=== PATIENT | female | born 1975 | race Caucasian/White ===

== ENCOUNTER 2019-09-16 11:31 | Inpatient (IN) ==
[~2019-09-16 11:31] MED LIST: FOLIC ACID 1 MG in SYRINGE 9.8 ML IV SCH
--- OUTSIDE RECORDS SUMMARY | 2019-09-16 11:34 | External Medical Summary | Continuity of Care Document ---
:1975 Author Name Enedina Teixeira Address Unavailable Unavailable , Care Team Providers Name Role Phone Del Teixeira Un[email or web address] Unavailable [email or web address] DEL Teixeira, K Unavailable Unavailable Unavailable Unavailable Unavailable Problems Concussion (850.9) (S06.0X9A) Seizure disorder (345.90) (G40.909) Encounter for screening for lipoid disorders (V77.91) (Z13.2 20) Backache (724.5) (M54.9) Coccydynia (724.79) (M53.3) Screening for malignant neoplasm of breast (V76.10) (Z12.39) Multiple insect bites (919.4) (W57.XXXA) Eustachian tube dysfunction (381.81) (H69.80) Allergic rhinitis (477.9) (J30.9) Back Pain Contusion Of The Right Shoulder With Intact Skin Surface (92 3.00) Visit For: Screening Malignant Neoplasm Oral Cavity (V76.42) Hypertension (401.9) (I10) Epistaxis (784.7) (R04.0) Hand pain (729.5) (M79.643) Depression with anxiety (300.4) (F41.8) Flu vaccine need (V04.81) (Z23) Encounter for screening for diabetes mellitus (V77.1) (Z13.1 ) Abnormal finding on mammography (793.80) (R92.8) Anxiety (300.00) (F41.9) Tenosynovitis, wrist (727.05) (M65.9) Allergies and Adverse Reactions Amoxicillin TABS (Allergy) Aspirin TABS (Allergy) predniSONE TABS (Allergy) TEGretol TABS (Allergy) Medications FLUoxetine HCl - 20 MG Oral Capsule; 3 pills each am w ith breakfast. Puneet Luis Start: 17-Apr-2014 Quantity: 90 Refills: 5 amLODIPine Besylate 5 MG Oral Tablet; Take 1 tablet daily Puneet Quintero Start: 14-Jul-2014 Quantity: 30 Refills: 5 Qnasl 80 MCG/ACT Nasal Aerosol Solution; 2 puffs each nostril daily. Puneet Luis Start: 27-Mar-2014 Quantity: 1 Refills: 0 Triamcinolone Acetonide 0.1 % External C ream; APPLY A THIN LAYER TO AFFECTED AREA(S) THREE TO FOUR TIMES DAILY NEEDED FOR ITCHING ABY Landis Start: 30-Jul-2014 Quantity: 1 15 GM Tube Refills: 0 Diclofenac Sodium 75 MG Oral Tablet Delayed Release; T hiren 1 tablet twice daily Puneet Luis Start: 05-Jun-2014 Quantity: 60 Refills: 5 Procedures History of Nerve Block Transforaminal Epidural Status: Completed History of Back Surgery Status: Complete d History of Exploratory Laparoscopy Statu s: Completed History of Appendectomy Status: Complete d History of Tubal Ligation Status: Comple clemente Immunizations Influenza On: 05-Jun-2014 16:08 Lot #: [id number], [employer] Family History Father Family history of Type 2 Diabetes Mellitus Status: Active Family history of Hypertension (V17.49) Status: Active Mother Family history of Essential Hypertension Status: Active Brother Family history of Type 2 Diabetes Mellitus Status: Active Sister Family history of Denial Of Any Significant Medical History Status: Active natural daughter Family history of Denial Of Any Significant Medical History Status: Active Family history of Denial Of Any Significant Medical History Status: Active Family history of Denial Of Any Significant Medical History Status: Active Family history of Asthma (V17.5) Status: Active Social History - Smoking Status Ex-smoker Plan of Treatment Planned Observations Planned Goals not documented Results No Known Results Results not documented
--- OUTSIDE RECORDS SUMMARY | 2019-09-16 11:35 | External Medical Summary | Continuity of Care Document ---
:1975 Author Name Enedina Teixeira Address Unavailable Unavailable , Care Team Providers Name Role Phone Del Teixeira Unavailable [email or web address] Unavailable [email or web address] DEL Teixeira, K Unavailable Unavailable Unavailable Unavailable Unavailable Problems Visit For: Screening Malignant Neoplasm Oral Cavity (V76.42) Contusion Of The Right Shoulder With Intact Skin Surface (92 3.00) Back Pain Concussion (850.9) (S06.0X9A) Seizure disorder (345.90) (G40.909) Encounter for screening for lipoid disorders (V77.91) (Z13.2 20) Backache (724.5) (M54.9) Coccydynia (724.79) (M53.3) Screening for malignant neoplasm of breast (V76.10) (Z12.39) Allergic rhinitis (477.9) (J30.9) Eustachian tube dysfunction (381.81) (H69.80) Flu vaccine need (V04.81) (Z23) Depression with anxiety (300.4) (F41.8) Hand pain (729.5) (M79.643) Tenosynovitis, wrist (727.05) (M65.9) Epistaxis (784.7) (R04.0) Hypertension (401.9) (I10) Multiple insect bites (919.4) (W57.XXXA) Anxiety (300.00) (F41.9) Abnormal finding on mammography (793.80) (R92.8) Encounter for screening for diabetes mellitus (V77.1) (Z13.1 ) Allergies and Adverse Reactions Amoxicillin TABS (Allergy) Aspirin TABS (Allergy) predniSONE TABS (Allergy) TEGretol TABS (Allergy) Medications Qnasl 80 MCG/ACT Nasal Aerosol Solution; 2 puffs each nostril daily. Puneet Luis Start: 27-Mar-2014 Quantity: 1 Refills: 0 FLUoxetine HCl - 20 MG Oral Capsule; 3 pills each am w ith breakfast. Puneet Luis Start: 17-Apr-2014 Quantity: 90 Refills: 5 Diclofenac Sodium 75 MG Oral Tablet Delayed Release; T hiren 1 tablet twice daily Puneet Luis Start: 05-Jun-2014 Quantity: 60 Refills: 5 amLODIPine Besylate 5 MG Oral Tablet; Take 1 tablet daily Puneet Quintero Start: 14-Jul-2014 Quantity: 30 Refills: 5 Triamcinolone Acetonide 0.1 % External C ream; APPLY A THIN LAYER TO AFFECTED AREA(S) THREE TO FOUR TIMES DAILY NEEDED FOR ITCHING ABY Landis Start: 30-Jul-2014 Quantity: 1 15 GM Tube Refills: 0 Procedures History of Nerve Block Transforaminal Epidural Status: Completed History of Back Surgery Status: Complete d History of Exploratory Laparoscopy Statu s: Completed History of Appendectomy Status: Complete d History of Tubal Ligation Status: Comple clemente Immunizations Influenza On: 05-Jun-2014 16:08 Lot #: [id number], [employer] PA[employer] Family History Father Family history [...]
[2019-09-16] MEDS ORDERED: SODIUM CHLORIDE 0.9% 1000ML 2,000 ML IV ONE (12:23)
[2019-09-16] MEDS ORDERED: METOCLOPRAMIDE HCL INJ 5 MG/ML 2 ML VIAL IV STA (12:23)
[2019-09-16] MEDS ORDERED: DIAZEPAM 5 MG/ML INJ 10ML VIAL IV STA ×2 (12:23→12:34)
[2019-09-16] MEDS ORDERED: FOLIC ACID 1 MG in SYRINGE 9.8 ML IV STA (12:34)
[2019-09-16] MEDS ORDERED: DIAZEPAM 5 MG/ML INJ 10ML VIAL IV PRN (12:34)
[2019-09-16] MEDS ORDERED: THIAMINE HCL 200 MG in SODIUM CHLORIDE 0.9% 50 ML IV STA (12:34)
[2019-09-16 12:53] LABS: Basophils # (auto) 0.01 K/uL (0-0.2); Basophils % (auto) 0.2 %; Eosinophils # (auto) 0.01 K/uL (0-0.5); Eosinophils % (auto) 0.2 %; Hematocrit (blood only) 45.8 % (37-47); Hemoglobin 15.8 g/dL (12.0-16.0); Immature Granulocytes # (auto) 0.01 K/uL (0.00-0.02); Immature Granulocytes % (auto) 0.2 %; Lymphocytes # (auto) 0.66 K/uL (1.2-3.4); Lymphocytes % (auto) 15.4 %; Mean Corpuscular Hemoglobin 33.8 pg (25-34); Mean Corpuscular Hgb Conc 34.5 g/dL (32-36); Mean Corpuscular Volume 98.1 fL (80-100); Mean Platelet Volume 9.3 fL (7.4-10.4); Monocytes # (auto) 0.77 K/uL (0.11-0.59); Neutrophils # (auto) 2.82 K/uL (1.4-6.5); Platelet Count 158 K/uL (130-400); RDW Coefficient of Variation 15.2 % (11.5-14.5); RDW Standard Deviation 54.1 fL (36.4-46.3); Red Blood Count 4.67 M/uL (4.2-5.4); White Blood Count 4.28 K/uL (4.8-10.8)
[2019-09-16 13:04] LABS: Appearance Urine Clear (Clear); Bacteria Urine Automated Negative (Negative); Bilirubin Urine Negative (Negative); Blood Urine Negative (Negative); Color Urine Yellow; Glucose Urine UA Negative (Negative); Leukocyte Esterase Urine Negative (Negative); Nitrite Urine Negative (Negative); Protein Urine Trace (Negative); RBC Urine Automated 0-4 /hpf (0-4); Specific Gravity Urine 1.023 (1.000-1.030); Urobilinogen Urine Negative (Negative)
--- NOTE | 2019-09-16 13:05 | XRay Report ---
XR chest 1V portable CLINICAL HISTORY: weakness COMPARISON STUDY: No previous studies for comparison. FINDINGS: Lung volumes are normal. Lungs are clear. There is no pneumothorax or pleural effusion. Car diac size is normal. Mediastinal contours are normal. There is no evidence for pulmonary edema. There are median sternotomy wires. IMPRESSION: No acute cardiopulmonary findings. ACT 112: Negative or not required by law. Electronically signed by: Guerrero Chao M.D. 09/16/2019 1:04 PM
[2019-09-16 13:10] LABS: Ketones Urine 4+ (Negative)
[2019-09-16 13:14] LABS: Albumin Level 4.1 gm/dl (3.4-5.0); Calcium 9.1 mg/dl (8.5-10.1); Creatinine Clr Calc Pharmacy 64.5 ml/min; Est GFR (African American) 72.9; Est GFR (Non-African American) 62.9; Magnesium 1.9 mg/dl (1.8-2.4); Potassium 4.7 mmol/L (3.5-5.1)
[2019-09-16 13:19] LABS: Acetaminophen < 2 ug/ml (10-30)
[2019-09-16 13:25] LABS: Bilirubin,Total 1.6 mg/dl (0.2-1); Globulin 4.1 gm/dl (2.5-4.0); Phosphorus 4.1 mg/dl (2.5-4.9); Thyroid Stimulating Hormone 2.88 uIu/ml (0.300-4.500); Total Protein 8.2 gm/dl (6.4-8.2); Troponin I 0.073 ng/ml (0-0.045)
[2019-09-16] MEDS ORDERED: LORazepam 2 MG/4 ML VIAL IV STA (13:57)
[2019-09-16] MEDS ORDERED: chlordiazePOXIDE HCl 25 MG CAP PO ONE (13:57)
[2019-09-16] MEDS ORDERED: D5W AND 1/2NSS 1,000 ML IV SCH (14:00)
[2019-09-16] MEDS ORDERED: ONDANSETRON INJ 2 MG/ML 2 ML VIAL IV PRN (14:08)
[2019-09-16] MEDS ORDERED: GABAPENTIN 1200MG ALCOHOL WITHDRAWAL LOAD PO STA (14:12)
[2019-09-16] MEDS ORDERED: GABAPENTIN 600 MG TAB PO STA (14:24)
[2019-09-16] MEDS ORDERED: MULTI-VITAMIN INFUSION 10 ML, THIAMINE HCL 100 MG, FOLIC ACID 1 MG in SODIUM CHLORIDE 0... IV STA (14:25)
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
--- NOTE | 2019-09-16 16:28 | Electrocardiogram Report ---
Test Reason : Blood Pressure : / mmHG Vent. Rate : 095 BPM Atrial Rate : 095 BPM P-R Int : 172 ms QRS Dur : 090 ms QT Int : 380 ms P-R-T Axes : 068 -71 063 degrees QTc Int : 477 ms Normal sinus rhythm with sinus arrhythmia Right atrial enlargement Left anterior fascicular block Poor R wave progression, consider anterior PR vs. lead placement vs. LVH Abnormal ECG When compared with ECG of 29-APR-1999 15:42, Vent. rate has increased BY 44 BPM Nonspecific T wave abnormality no longer evident in Inferior leads Confirmed by Sal Underwood ([id number]) on 09/16/2019 4:28:26 PM Referred By: Confirmed By:Sal Underwood
[2019-09-16] MEDS: SODIUM CHLORIDE 0.9% 1000ML 1,000 ML IV SCH (17:58)
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
[2019-09-16] MEDS: GABAPENTIN 600 MG TAB PO SCH (20:01)
[2019-09-16] MEDS: NITROGLYCERIN SL 0.4 MG/TAB TAB SL PRN ×3 (20:04→20:20)
[2019-09-16] MEDS: LORazepam 1 MG/2 ML VIAL IV PRN ×2 (20:39→22:59)
[2019-09-16] MEDS ORDERED: ENOXAPARIN INJ 40 MG/0.4 ML SYR SQ SCH (21:00)
[2019-09-17] MEDS ORDERED: ACETAMINOPHEN 325 MG TAB PO PRN (01:57)
[2019-09-17] MEDS ORDERED: LACTATED RINGER'S 1,000 ML IV ONE ×2 (01:58→03:16)
[2019-09-17] MEDS ORDERED: IOVERSOL 100ml IV PRN (02:04)
[2019-09-17 02:27] LABS: Hematocrit (blood only) 37.4 % (37-47); Hemoglobin 12.3 g/dL (12.0-16.0); Mean Corpuscular Hemoglobin 32.4 pg (25-34); Mean Corpuscular Hgb Conc 32.9 g/dL (32-36); Mean Corpuscular Volume 98.4 fL (80-100); Platelet Count 122 K/uL (130-400); RDW Coefficient of Variation 15.2 % (11.5-14.5); RDW Standard Deviation 54.9 fL (36.4-46.3); White Blood Count 2.94 K/uL (4.8-10.8)
[2019-09-17 02:33] LABS: Partial Thromboplastin Ratio 1.1; Partial Thromboplastin Time 29.3 Seconds (21.0-31.0); Prothrombin Time 10.6 Seconds (9.0-12.0)
[2019-09-17 02:40] LABS: Albumin Level 2.8 gm/dl (3.4-5.0); BUN Creatinine Ratio 10.4 (10-20); Est GFR (African American) 83.3; Est GFR (Non-African American) 71.8; Magnesium 1.6 mg/dl (1.8-2.4)
[2019-09-17] MEDS: OXYCODONE HCL IR 5 MG TAB (IMMEDIATE RELEASE) PO PRN ×2 (02:49→08:38)
[2019-09-17 02:50] LABS: Bilirubin,Total 1.6 mg/dl (0.2-1); Globulin 2.9 gm/dl (2.5-4.0); Total Protein 5.7 gm/dl (6.4-8.2); Troponin I 0.052 ng/ml (0-0.045)
[2019-09-17] MEDS: GABAPENTIN 600 MG TAB PO SCH ×3 (02:50→19:56)
[2019-09-17 02:52] LABS: Base Excess VBG -0.6 mEq/L; Oxygen Saturation VBG 83.7 %; pH VBG 7.47 (7.36-7.41)
[2019-09-17 03:05] LABS: Basophils # (auto) 0.01 K/uL (0-0.2); Basophils % (auto) 0.3 %; Eosinophils # (auto) 0.01 K/uL (0-0.5); Eosinophils % (auto) 0.3 %; Immature Granulocytes # (auto) 0.01 K/uL (0.00-0.02); Immature Granulocytes % (auto) 0.3 %; Lymphocytes # (auto) 0.95 K/uL (1.2-3.4); Lymphocytes % (auto) 32.3 %; Monocytes # (auto) 0.57 K/uL (0.11-0.59); Monocytes % (auto) 19.4 %; Neutrophils # (auto) 1.39 K/uL (1.4-6.5); Neutrophils % (auto) 47.4 %
[2019-09-17] MEDS ORDERED: MAGNESIUM SULFATE / D5W 1 GM/100 ML BAG IV ONE (03:16)
[2019-09-17] MEDS ORDERED: LACTATED RINGER'S 1,000 ML IV SCH (04:00)
--- NOTE | 2019-09-17 07:18 | CT Scan Report ---
CT OF THE ABDOMEN AND PELVIS WITH CONTRAST CLINICAL HISTORY: Abdominal pain. COMPARISON STUDY: None. TECHNIQUE: Following IV administration of 91 mL of Optiray-320, axial images of the abdomen and pelvi s were obtained from the lung bases to the proximal femurs. Images were reviewed in the axial, sagitt al, and coronal planes. IV contrast was administered without complication. Automated exposure contro l was utilized for the study. A dose lowering technique was utilized adhering to the principles of A SHERICE. CT DOSE: 385.51 mGy.cm FINDINGS: No pneumatosis, free air or portal venous gas is present. There is fatty infiltration of th e liver. No biliary or pancreatic ductal dilatation is present. The spleen, adrenal glands and kidney s are normal. There is no hydronephrosis. There is no evidence for a bowel obstruction. The ovaries a re not enlarged. The appendix is not visualized. Major vasculature is patent. Incidental note is made of a common origin for the celiac axis and superior mesenteric artery. There is no ascites or lympha denopathy. No suspicious osseous lesions are present. IMPRESSION: 1. No acute process within the abdomen or pelvis. 2. Fatty infiltration of the liver. ACT 112: Negative or not required by law. Electronically signed by: Guerrero Chao M.D. 09/17/2019 7:17 AM
[2019-09-17] MEDS: MAGNESIUM OXIDE 400 MG TAB PO SCH ×2 (08:32→21:45)
[2019-09-17] MEDS ORDERED: FOLIC ACID 1 MG in SYRINGE 9.8 ML IV SCH (09:00)
[2019-09-17] MEDS ORDERED: THIAMINE HCL 100 MG in SYRINGE 9 ML IV SCH (09:00)
[2019-09-17] MEDS ORDERED: LORazepam 1 MG/2 ML VIAL IV STA (10:49)
--- NOTE | 2019-09-17 13:20 | Hospitalist Progress Note ---
Date of Service September 17, 2019 Assessment & Plan (1) Alcohol withdrawal: clinically appears to be over her withdrawal although she is still having some abdominal discomfort. Tachycardia has resolved and she is not tremulous. Cont Ativan as needed, gabapentin per protocol. GI cocktail or other supportive care for GI discomfort, likely 2/2 gastritis from drinking. No evidence of GI bleed at this time. Will start protonix. Trial of carafate to also help with symptoms. Consider consulting GI (2) Alcoholism /alcohol abuse: consideration being given to inpatient rehab program. Appreciate CM assistance with this. (3) Acute dehydration: improved/resolved. (4) Elevated troponin: troponin did not elevate, however, no echo on file. Will order now to ensure no acute wall motion abnormalities. Pt denies chest pain at this time. (5) Acute alcoholic hepatitis: elevated LFTs, expected to resolve with time away from alcohol. (6) DVT prophylaxis: Lovenox Full Dispo-to home when medically stable. Hopeful for her to enter an inpatient rehab program. Amaris Rivas DO [facility] Hospitalist Admission and Anticipated Discharge Date Admission Date: September 16, 2019 Subjective pt reports feeling abdominal cramping and discomfort since beginning her detox at home and this is persistent. trial of additional ativan this am didn't help GI cocktail offered. denies changes in bowels Review of Systems Review of Systems: All systems reviewed & are unremarkable except as noted in Subjective Physical Exam Physical Exam: CONSTITUTIONAL: WNWD, vitals as above, generally well-appear ing EYES: normal conjunctivae, no scleral icterus ENT: external ear and nose normal, MMM RESPIRATORY: clear to auscultation bilaterally, no crackles, rales or wheezes, normal respiratory effort CARDIOVASCULAR: regular rate and rhythm, S1 and 2 heard without murmurs, gallops or rubs, no JVD, no peripheral edema GASTROINTESTINAL: normal bowel sounds, soft, nontender, nondistended MUSCULOSKELETAL: strength 5/5 throughout, head is normocephalic and atraumatic, moves all extremities equally. SKIN: warm and dry NEUROLOGIC: CN 2-12 grossly intact, no sensory deficit, normal cognition, normal speech, no tremor, no asterixis, no gross focal deficits PSYCHIATRIC: alert cooperative and oriented to person, place and time. Results & Data ([facility]) Vital Signs (Past 12 Hours) Vital Signs Temp Pulse Resp BP Pulse Ox 03/04/20 11:11 36.6 C 89 14 133/90 97 09/17/19 08:00 36.6 C 80 20 130/92 99 09/17/19 04:00 36.7 C 74 12 136/87 99 Laboratory Results Short CBC 09/17/19 Range/Units 02:09 WBC 2.94 L (4.8-10.8) K/uL Hgb 12.3 D (12.0-16.0) g/dL Hct 37.4 (37-47) % Plt Count 122 L (130-400) K/uL BMP 09/17/19 02:09 Sodium 136 Potassium 4.0 Chloride 104 Carbon Dioxide 21 BUN 10 Creatinine 0.95 Glucose 105 H Calcium 8.0 L Cardiac Enzymes 09/16/19 09/16/19 09/17/19 Range/Units 12:40 18:42 02:09 Troponin I 0.073 H* 0.097 H* 0.052 H* (0-0.045) ng/ml Liver Function 09/16/19 09/17/19 Range/Units 12:40 02:09 Total Bilirubin 1.6 H 1.6 H (0.2-1) mg/dl AST 89 H (15-37) U/L ALT 80 H (12-78) U/L Alkaline Phosphatase 91 64 (45-117) U/L Albumin 2.8 L (3.4-5.0) gm/dl Medications Administered Current Inpatient Medications Acetaminophen (Tylenol) 325 mg PO Q6H PRN PRN Reason: Mild Pain Stop: 10/17/19 01:56 Gabapentin (Neurontin) 600 mg PO Q8H TERESA Stop: 09/18/19 03:01 Last Admin: 09/17/19 10:43 Dose: 600 mg Documented by: Gabapentin (Neurontin) 600 mg PO Q12H TERESA Stop: 09/19/19 03:01 Gabapentin (Neurontin) 600 mg PO Q24H TERESA Stop: 09/20/19 03:01 Lorazepam (Ativan) 1 mg in 2 mls @ 2 mls/min IV ONE PRN; Protocol PRN Reason: EtoH Withdrawal AWSS 6-10 Stop: 10/16/19 14:11 Last Admin: 09/16/19 22:59 Dose: 2 mls/min Documented by: Thiamine HCl 100 mg/ Syringe 10 mls @ 2 mls/min IV QAM [facility] Stop: 10/17/19 08:59 Last Admin: 09/17/19 08:32 Dose: 2 mls/min Documented by: Folic Acid 1 mg/ Syringe 10 mls @ 5 mls/min IV QAM [facility] Stop: 10/17/19 08:59 Last Admin: 09/17/19 08:33 Dose: 5 mls/min Documented by: Lactated Ringer's (Lr) 1,000 mls @ 60 mls/hr IV .[id number] ONE Stop: 09/17/19 19:54 Last Admin: 09/17/19 04:08 Dose: 60 mls/hr Documented by: Ioversol (Optiray 320 100ml) 91 ml IV ONCE PRN PRN Reason: Interaction Checking Stop: 09/21/19 03:03 Last Admin: 09/17/19 02:05 Dose: 1 ml Documented by: Magnesium Oxide (Mag-Ox) 400 mg PO BID [facility] Stop: 10/17/19 08:59 Last Admin: 09/17/19 08:32 Dose: 400 mg Documented by: Nitroglycerin (Nitrostat) 0.4 mg SL UD PRN PRN Reason: CHEST PAIN Stop: 10/16/19 20:26 Last Admin: 09/16/19 20:20 Dose: 0.4 mg Documented by: Ondansetron HCl (Zofran) 4 mg IV Q6H PRN PRN Reason: Nausea Stop: 10/16/19 14:07 Oxycodone HCl (Roxicodone Immediate Rel) 5 mg PO Q6H PRN PRN Reason: Pain Stop: 10/01/19 02:13 Last Admin: 09/17/19 08:38 Dose: 5 mg Documented by: (1) Alcohol withdrawal Complication of substance-induced condition: with unspecified complication Qualified Code(s): F10.239 - Alcohol dependence with withdrawal, unspecified
[2019-09-17] MEDS ORDERED: ALUMINUM/MAGNESIUM SUSP 72 ML, LIDOCAINE HCL VISCOUS 2% 24 ML, BARCODE IDENTIFIER 1 EA PO PRN (14:24)
--- NOTE | 2019-09-17 15:52 | Electrocardiogram Report ---
Test Reason : Blood Pressure : / mmHG Vent. Rate : 087 BPM Atrial Rate : 087 BPM P-R Int : 186 ms QRS Dur : 088 ms QT Int : 420 ms P-R-T Axes : 059 -57 054 degrees QTc Int : 505 ms Normal sinus rhythm Low voltage QRS Left anterior fascicular block Poor R wave progression, consider anterior [place] vs. lead placement vs. LVH Prolonged QT Abnormal ECG When compared with ECG of 16-SEP-2019 12:32, T wave inversion now evident in Anterior leads Confirmed by Sal Underwood ([id number]) on 09/17/2019 3:52:06 PM Referred By: REFERRED SELF Confirmed By:Sal Underwood
[2019-09-17] MEDS ORDERED: PROMETHAZINE HCL 25 MG/20 ML UDP PO PRN (16:00)
[2019-09-17] MEDS: PANTOprazole 40 MG TAB PO SCH (16:52)
[2019-09-17] MEDS: ALUMINUM/MAGNESIUM SUSP 72 ML, LIDOCAINE HCL VISCOUS 2% 24 ML, BARCODE IDENTIFIER 1 EA PO PRN (16:54)
[2019-09-17] MEDS: LORazepam 1 MG TAB PO PRN (18:07)
[2019-09-17] MEDS: SUCRALFATE 1 GM/10 ML UDC PO SCH ×2 (19:02→21:45)
[2019-09-17] MEDS ORDERED: MoRPHine SULFATE 4 MG/ML 1 ML CARP\\VIAL IV STA (20:01)
[2019-09-17] MEDS: SODIUM CHLORIDE 0.9% 1000ML 1,000 ML IV SCH (21:16)
[2019-09-18] MEDS: LORazepam 1 MG TAB PO PRN ×4 (02:27→20:39)
[2019-09-18] MEDS ORDERED: TRAMADOL HCL 50 MG TABLET PO STA (02:47)
[2019-09-18] MEDS: GABAPENTIN 600 MG TAB PO SCH (03:01)
[2019-09-18 06:57] LABS: Hematocrit (blood only) 41.9 % (37-47); Hemoglobin 13.7 g/dL (12.0-16.0); Mean Corpuscular Hemoglobin 32.7 pg (25-34); Mean Corpuscular Hgb Conc 32.7 g/dL (32-36); Nucleated RBC # (auto) 0.09 K/uL (0-0); Nucleated RBC % (auto) 3.4 %; Red Blood Count 4.19 M/uL (4.2-5.4); White Blood Count 2.48 K/uL (4.8-10.8)
[2019-09-18 07:21] LABS: BUN Creatinine Ratio 7.7 (10-20); Calcium 8.6 mg/dl (8.5-10.1); Est GFR (African American) 105.7; Est GFR (Non-African American) 91.2; Magnesium 1.9 mg/dl (1.8-2.4); Potassium 3.9 mmol/L (3.5-5.1)
[2019-09-18 07:33] LABS: Mean Platelet Volume 9.7 fL (7.4-10.4); Platelet Count 98 K/uL (130-400)
[2019-09-18 07:34] LABS: Platelet Estimate Decreased (Normal)
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
[2019-09-18] MEDS: PANTOprazole 40 MG TAB PO SCH (09:00)
[2019-09-18] MEDS: THIAMINE HCL 100 MG TAB PO SCH (09:00)
[2019-09-18] MEDS: SUCRALFATE 1 GM/10 ML UDC PO SCH ×4 (09:00→20:39)
[2019-09-18] MEDS: FOLIC ACID 1 MG TAB PO SCH (09:00)
[2019-09-18] MEDS: ALUMINUM/MAGNESIUM SUSP 72 ML, LIDOCAINE HCL VISCOUS 2% 24 ML, BARCODE IDENTIFIER 1 EA PO PRN ×2 (09:01→12:28)
[2019-09-18] MEDS: MAGNESIUM OXIDE 400 MG TAB PO SCH ×2 (12:28→20:39)
[2019-09-18] MEDS ORDERED: GABAPENTIN 600 MG TAB PO SCH (15:00)
[2019-09-18] MEDS ORDERED: POLYETHYLENE (MIRALAX) 17 GM PACK PO PRN (16:23)
[2019-09-18] MEDS ORDERED: bisacodyL 10 MG SUPP PR PRN (16:23)
[2019-09-18] MEDS ORDERED: POLYETHYLENE (MIRALAX) 17 GM PACK ONE (17:13)
[2019-09-18] MEDS ORDERED: TAPENTADOL HCL 50 MG TAB PO ONE (17:14)
[2019-09-18] MEDS: POLYETHYLENE (MIRALAX) 17 GM PACK PO SCH (17:18)
[2019-09-18] MEDS: DULOXETINE HCL 20 MG CAP PO SCH (19:46)
[2019-09-18] MEDS: GABAPENTIN 300 MG CAP PO SCH (20:39)
[2019-09-18] MEDS: TAPENTADOL HCL 50 MG TAB PO PRN (22:27)
[2019-09-19] MEDS: LORazepam 1 MG TAB PO PRN ×2 (00:42→07:39)
[2019-09-19] MEDS: PANTOprazole 40 MG TAB PO SCH (07:39)
[2019-09-19] MEDS: TAPENTADOL HCL 50 MG TAB PO PRN (07:39)
[2019-09-19] MEDS: MAGNESIUM OXIDE 400 MG TAB PO SCH ×2 (07:39→20:09)
[2019-09-19] MEDS: SUCRALFATE 1 GM/10 ML UDC PO SCH ×4 (07:39→20:08)
[2019-09-19] MEDS: DULOXETINE HCL 20 MG CAP PO SCH (07:39)
[2019-09-19] MEDS: THIAMINE HCL 100 MG TAB PO SCH (07:39)
[2019-09-19] MEDS: FOLIC ACID 1 MG TAB PO SCH (07:39)
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
[2019-09-19] MEDS: METOPROLOL SUCC 25MG EXT REL TAB PO SCH (11:58)
[2019-09-19] MEDS: POLYETHYLENE (MIRALAX) 17 GM PACK PO SCH (16:24)
[2019-09-19] MEDS: GABAPENTIN 300 MG CAP PO SCH (20:10)
[2019-09-20] MEDS ORDERED: GABAPENTIN 600 MG TAB PO SCH (03:00)
[2019-09-20 07:04] LABS: Hematocrit (blood only) 41.3 % (37-47); Hemoglobin 13.5 g/dL (12.0-16.0); Mean Corpuscular Hemoglobin 33.7 pg (25-34); Mean Corpuscular Hgb Conc 32.7 g/dL (32-36); Mean Platelet Volume 10.6 fL (7.4-10.4); Platelet Count 120 K/uL (130-400); RDW Coefficient of Variation 14.3 % (11.5-14.5); RDW Standard Deviation 54.6 fL (36.4-46.3); Red Blood Count 4.01 M/uL (4.2-5.4); White Blood Count 3.62 K/uL (4.8-10.8)
[2019-09-20 07:43] LABS: Albumin Level 3.1 gm/dl (3.4-5.0); BUN Creatinine Ratio 13.8 (10-20); Calcium 8.9 mg/dl (8.5-10.1); Creatinine Clr Calc Pharmacy 80.8 ml/min; Est GFR (African American) 85.4; Est GFR (Non-African American) 73.7; Potassium 4.2 mmol/L (3.5-5.1)
[2019-09-20 07:54] LABS: Albumin Globulin Ratio 0.9 (0.9-2); Bilirubin,Total 0.6 mg/dl (0.2-1); Globulin 3.6 gm/dl (2.5-4.0); Total Protein 6.7 gm/dl (6.4-8.2)
[2019-09-20] MEDS: METOPROLOL SUCC 25MG EXT REL TAB PO SCH (08:00)
[2019-09-20] MEDS: PANTOprazole 40 MG TAB PO SCH (08:00)
[2019-09-20] MEDS: DULOXETINE HCL 20 MG CAP PO SCH (08:00)
[2019-09-20] MEDS: THIAMINE HCL 100 MG TAB PO SCH (08:00)
[2019-09-20] MEDS: LORazepam 1 MG TAB PO PRN (08:00)
[2019-09-20] MEDS: FOLIC ACID 1 MG TAB PO SCH (08:00)
[2019-09-20] MEDS: TAPENTADOL HCL 50 MG TAB PO PRN (08:00)
[2019-09-20] MEDS: SUCRALFATE 1 GM/10 ML UDC PO SCH (08:00)
[2019-09-20] MEDS: MAGNESIUM OXIDE 400 MG TAB PO SCH ×2 (08:00→20:19)
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
--- NOTE | 2019-09-20 09:56 | Ultrasound Report ---
US duplex portal hepatic veins CLINICAL HISTORY: 44 years-old Female presenting with elevated LFTs acutely, r/o clot, eval liver natalia ture. TECHNIQUE: Real-time grayscale and color and spectral Doppler ultrasound imaging of the liver was per formed. COMPARISON: Contrast-enhanced CT of abdomen and pelvis from 09/17/2019. FINDINGS: Liver: Moderately hyperechogenic parenchyma with partial obscuration of the right hemidiaphragm, like ly indicating moderate steatosis. The liver measures 20.2 cm in maximal sagittal dimension. 1 cm hepa tic cysts noted. Vasculature: Portal veins: Main portal vein with normal antegrade flow and gentle undulating waveforms. Peak veloc ity 23 cm/s. Right and left portal veins with normal directional flow. Hepatic arteries: Not interrogated. Hepatic veins: Right, middle, and left hepatic veins with normal triphasic waveforms. Splenic vein: Patent. IVC: Patent. Biliary: No intrahepatic biliary ductal dilatation. Common bile duct measures 4 mm in diameter. Gallbladder: No evidence of gallstones, gallbladder wall thickening, gallbladder distention, or peric holecystic fluid or inflammatory change. Ascites: None. Other: None. IMPRESSION: 1. Patent portal and hepatic veins. No evidence of thrombosis. 2. Hepatic steatosis. Correlate with liver function tests for steatohepatitis as a cause for enzyme elevation. ACT 112: Negative or not required by law. Electronically signed by: Gamaliel Gray M.D. 09/20/2019 9:54 AM
[2019-09-20 10:24] LABS: Hepatitis B Surface Antigen Neg (Neg)
[2019-09-20 10:41] LABS: INR 0.9 (0.9-1.1); Prothrombin Time 9.9 Seconds (9.0-12.0)
[2019-09-20 10:53] LABS: Hepatitis C IgG 13Yrs+Old_Rflx Neg (Neg)
--- NOTE | 2019-09-20 11:13 | Gastroenterology Progress Note ---
Date of Service September 20, 2019 Assessment & Plan Admission and Anticipated Discharge Date Admission Date: September 16, 2019 Subjective Asked by hospitalist to provide input regarding increased LFT's. AST/ALT mildly increased on admission, attrib to ETOH hep. Transaminases last checked on 09/16, rechecked today shows AST 586ALT 407. Krupa bili, alk phos. CT shows steatosis, doppler uls neg for PVT, APAP level neg, hep panel pending. Labs also show fall in plt cont, WBC. Hosp course sig for newly dx'd cardiomyopathy with EF 45-50. No right sided vent dysfunction, no hypotension. Began Cymbalta, which per livertox website, may cause transient LFT elevation 1% of patients. Not on any other hepatotoxic meds. Pt is not symptomatic, abd soft/NT. No hepatojug reflux. A/P: Elevated LFTs - This seems most likely DILI, possibly related to Cymbalta. Viral hep, AIH remain in differential but seem less likely. Will recheck lipase,LFT's, CPK, CBC/d. If LFT's cont rise, then will check EBV, CMV, AIH serologies. Results & Data ([facility]) Vital Signs (Past 12 Hours) Vital Signs Temp Pulse Pulse Resp BP BP Pulse Ox 09/20/19 08:43 79 09/20/19 07:29 36.7 C 74 16 101/72 99 09/20/19 03:18 36.8 C 86 17 107/76 98 09/19/19 23:30 36.7 C 74 17 103/71 97
--- NOTE | 2019-09-20 12:17 | Cardiology Progress Note ---
Date of Service September 20, 2019 Assessment & Plan (1) Alcoholism /alcohol abuse: (2) Subclavian artery injury: (3) Transaminitis: (4) Alcoholic cardiomyopathy: The patient is clinically stable and on guideline directed medications. No additional cardiac testing at this time. Subjective The patient voices no complaints. She denies shortness of breath or chest pain. She is currently eating her lunch. Review of Systems Review of Systems: All systems reviewed & are unremarkable except as noted in HPI & below Nothing additional to add. Physical Exam Physical Exam: General: no acute distress and stated age Head: normocephalic, no masses, lesions, tenderness or abnormalities Eyes: conjunctiva are pink and non-injected, sclera clear Neck: supple, no adenopathy, no bruits, normal jugular venous pulse, no hepatojugular reflux Chest: normal shape and normal respiratory effort Lungs: clear to auscultation and percussion Cardiac Exam: - regular rate & rhythm, no murmurs gallops or rubs - normal S1, normal S2 Pulses: 2(+) throughout Abdomen: abdomen soft, non-tender, no abnormal masses and no hepatosplenomegaly Musculoskeletal: no gait disturbance, no joint inflammation, no deforming arthritis Extremities: no edema and no cyanosis Neuro: grossly normal exam Results & Data Vital Signs (Past 12 Hours) Vital Signs Temp Pulse Pulse Resp BP BP Pulse Ox 09/20/19 08:43 79 09/20/19 07:29 36.7 C 74 16 101/72 99 09/20/19 03:18 36.8 C 86 17 107/76 98 Laboratory Results Laboratory Results - last 24 hr 09/20/19 09/20/19 09/20/19 06:41 06:41 09:22 WBC 3.62 L RBC 4.01 L Hgb 13.5 Hct 41.3 MCV 103.0 H MCH 33.7 MCHC 32.7 RDW Std Deviation 54.6 H RDW Coeff of Margi 14.3 Plt Count 120 L MPV 10.6 H PT INR Sodium 137 Potassium 4.2 Chloride 104 Carbon Dioxide 31 Anion Gap 2.0 L BUN 13 Creatinine 0.93 Est Cr Clr Drug Dosing 80.8 Est GFR ( Amer) 85.4 Est GFR (Non-Af Amer) 73.7 BUN/Creatinine Ratio 13.8 Glucose 100 H Calcium 8.9 Total Bilirubin 0.6 AST 586 H ALT 407 H Alkaline Phosphatase 71 Total Creatine Kinase Total Protein 6.7 Albumin 3.1 L Globulin 3.6 Albumin/Globulin Ratio 0.9 HCG, Quant Acetaminophen Ethyl Alcohol mg/dL Hepatitis A IgM Ab Hep Bs Antigen Neg Hep B Core IgM Ab Hepatitis C Antibody Neg 09/20/19 09/20/19 09/20/19 09:22 09:22 09:22 WBC RBC Hgb Hct MCV MCH MCHC RDW Std Deviation RDW Coeff of Margi Plt Count MPV PT INR Sodium Potassium Chloride Carbon Dioxide Anion Gap BUN Creatinine Est Cr Clr Drug Dosing Est GFR ( Amer) Est GFR (Non-Af Amer) BUN/Creatinine Ratio Glucose Calcium Total Bilirubin AST ALT Alkaline Phosphatase Total Creatine Kinase 19 L Total Protein Albumin Globulin Albumin/Globulin Ratio HCG, Quant < 1 Acetaminophen Ethyl Alcohol mg/dL Hepatitis A IgM Ab Pending Hep Bs Antigen Hep B Core IgM Ab Pending Hepatitis C Antibody 09/20/19 09/20/19 09/20/19 09:22 09:22 10:19 WBC RBC Hgb Hct MCV MCH MCHC RDW Std Deviation RDW Coeff of Margi Plt Count MPV PT 9.9 INR 0.9 Sodium Potassium Chloride Carbon Dioxide Anion Gap BUN Creatinine Est Cr Clr Drug Dosing Est GFR ( Amer) Est GFR (Non-Af Amer) BUN/Creatinine Ratio Glucose Calcium Total Bilirubin AST ALT Alkaline Phosphatase Total Creatine Kinase Total Protein Albumin Globulin Albumin/Globulin Ratio HCG, Quant Acetaminophen < 2 L Ethyl Alcohol mg/dL < 3.0 Hepatitis A IgM Ab Hep Bs Antigen Hep B Core IgM Ab Hepatitis C Antibody Medications Administered Current Inpatient Medications Acetaminophen (Tylenol) 325 mg PO Q6H PRN PRN Reason: Mild Pain Stop: 10/17/19 01:56 Bisacodyl (Dulcolax) 10 mg [place] DAILY PRN PRN Reason: Constipation Stop: 10/18/19 16:22 Clonazepam (Klonopin) 0.5 mg PO Q12H PRN PRN Reason: severe anxiety Stop: 10/20/19 08:59 Duloxetine [facility] ([facility]ymbalta) [facility] Stop: 10/18/19 16:29 Last Admin: 09/20/19 08:00 Dose: 20 mg Documented by: Folic Acid (Folvite) [facility] Stop: 10/18/19 08:59 Last Admin: 09/20/19 08:00 Dose: 1 mg Documented by: Gabapentin (Neurontin) 300 mg PO HS [facility] Stop: 10/18/19 20:59 Last Admin: 09/19/19 20:10 Dose: 300 mg Documented by: Ioversol (Optiray 320 100ml) 91 ml IV ONCE PRN PRN Reason: Interaction Checking Stop: 09/21/19 03:03 Last Admin: 09/17/19 02:05 Dose: 1 ml Documented by: Magnesium Oxide (Mag-Ox) 400 mg PO BID [facility] Stop: 10/17/19 08:59 Last Admin: 09/20/19 08:00 Dose: 400 mg Documented by: Metoprolol Succinate (Toprol Xl) 12.5 mg PO [facility] Stop: 10/19/19 11:29 Last Admin: 09/20/19 08:00 Dose: 12.5 mg Documented by: Nitroglycerin (Nitrostat) 0.4 mg SL UD PRN PRN Reason: CHEST PAIN Stop: 10/16/19 20:26 Last Admin: 09/16/19 20:20 Dose: 0.4 mg Documented by: Pantoprazole Sodium (Protonix) 40 mg PO [facility] Stop: 10/17/19 15:59 Last Admin: 09/20/19 08:00 Dose: 40 mg Documented by: Polyethylene Glycol (Miralax Powder Packet) 17 gm PO DAILY PRN PRN Reason: Constipation Stop: 10/18/19 16:22 Last Admin: 09/19/19 00:06 Dose: 17 gm Documented by: Promethazine HCl (Phenergan) 25 mg PO Q6H PRN PRN Reason: Nausea And Vomiting Stop: 10/17/19 15:59 Tapentadol (Nucynta) 50 mg PO Q6H PRN PRN Reason: Severe Pain Stop: 10/02/19 17:44 Last Admin: 09/20/19 08:00 Dose: 50 mg Documented by: Thiamine HCl (Vitamin B-1) 100 mg PO [facility] Stop: 10/18/19 08:59 Last Admin: 09/20/19 08:00 Dose: 100 mg Documented by:
[2019-09-20] MEDS ORDERED: SODIUM CHLORIDE 0.9% 1000ML 1,000 ML IV SCH (14:15)
[2019-09-20] MEDS: ENOXAPARIN INJ 40 MG/0.4 ML SYR SQ SCH (17:12)
[2019-09-20] MEDS: GABAPENTIN 300 MG CAP PO SCH (20:19)
[2019-09-21 03:41] LABS: Prothrombin Time 10.3 Seconds (9.0-12.0)
[2019-09-21 03:46] LABS: Basophils # (auto) 0.01 K/uL (0-0.2); Basophils % (auto) 0.3 %; Eosinophils # (auto) 0.06 K/uL (0-0.5); Eosinophils % (auto) 1.7 %; Hematocrit (blood only) 40.7 % (37-47); Hemoglobin 13.2 g/dL (12.0-16.0); Lymphocytes # (auto) 1.01 K/uL (1.2-3.4); Mean Corpuscular Hemoglobin 33.2 pg (25-34); Mean Corpuscular Hgb Conc 32.4 g/dL (32-36); Mean Corpuscular Volume 102.3 fL (80-100); Mean Platelet Volume 10.7 fL (7.4-10.4); Monocytes # (auto) 0.53 K/uL (0.11-0.59); Monocytes % (auto) 14.7 %; Neutrophils % (auto) 55.3 %; Platelet Count 132 K/uL (130-400); RDW Coefficient of Variation 14.5 % (11.5-14.5); RDW Standard Deviation 54.5 fL (36.4-46.3); Red Blood Count 3.98 M/uL (4.2-5.4); White Blood Count 3.61 K/uL (4.8-10.8)
[2019-09-21 03:51] LABS: Albumin Level 2.9 gm/dl (3.4-5.0); BUN Creatinine Ratio 14.3 (10-20); Bilirubin Direct 0.2 mg/dl (0-0.2); Calcium 8.5 mg/dl (8.5-10.1); Creatinine Clr Calc Pharmacy 81.7 ml/min; Est GFR (African American) 86.5; Est GFR (Non-African American) 74.7; Potassium 3.8 mmol/L (3.5-5.1)
[2019-09-21 03:53] LABS: Albumin Globulin Ratio 0.9 (0.9-2); Bilirubin,Total 0.5 mg/dl (0.2-1); Globulin 3.4 gm/dl (2.5-4.0); Total Protein 6.3 gm/dl (6.4-8.2)
[2019-09-21] MEDS: DULOXETINE HCL 20 MG CAP PO SCH (07:55)
[2019-09-21] MEDS: PANTOprazole 40 MG TAB PO SCH (07:55)
[2019-09-21] MEDS: METOPROLOL SUCC 25MG EXT REL TAB PO SCH (07:55)
[2019-09-21] MEDS: FOLIC ACID 1 MG TAB PO SCH (07:55)
[2019-09-21] MEDS: MAGNESIUM OXIDE 400 MG TAB PO SCH ×2 (07:55→21:08)
[2019-09-21] MEDS: THIAMINE HCL 100 MG TAB PO SCH (07:56)
[2019-09-21] MEDS: clonazePAM 0.5 MG TAB PO PRN ×2 (07:56→21:08)
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
--- NOTE | 2019-09-21 11:15 | History & Physical Report ---
Date of Service September 21, 2019 History of Present Illness Primary Care Provider: Yamel Gamboa MD Possible seizure this am, undergoing neuro w/u. No new GI complaints. Allergies Allergy/AdvReac Type Severity Reaction Status Date / Time amoxicillin Allergy Intermediate Hives Unverified 09/16/19 14:27 aspirin Allergy Intermediate Hives Unverified 09/16/19 14:27 carbamazepine [From Tegretol] Allergy Intermediate Hives Verified 09/16/19 14:27 prednisone Allergy Intermediate Hives Unverified 09/16/19 14:27 Home Medications Home Medications Medication Instructions Recorded Confirmed Type No Known Home Medications 09/16/19 09/16/19 History Past Med/Surg History Medical History Subclavian artery injury Surgical History No pertinent past surgical history Family History Other No pertinent family history in first degree relatives Social History Preferred Language: Mauritanian Communication Ability: Effective Therapeutic Radiologist Required: No Beliefs That Will Affect Care: None Current Living Situation: Other Current Living Situation Comment: FRIEND Other Information That Helps Us Care for You: No Feels Safe at Home: Yes Safety Concerns: Feels Safe At This Time Smoking Status: Former smoker Hx Alcohol Use: Yes Alcohol type: hard liquor Hx Substance Use: Yes substance use type: marijuana Results & Data Vital Signs (Past 12 Hours) Vital Signs Temp Pulse Pulse Resp BP BP Pulse Ox 09/21/19 08:00 73 09/21/19 07:26 36.5 C 16 98 09/21/19 03:09 37.0 C 69 15 124/86 97 09/20/19 23:53 66 09/20/19 23:51 36.7 C 72 15 115/79 98 Code Status & VTE Plan VTE Prophylaxis Plan VTE Prophylaxis will be ordered: Yes
--- NOTE | 2019-09-21 11:24 | Gastroenterology Progress Note ---
Date of Service September 21, 2019 Assessment & Plan Admission and Anticipated Discharge Date Admission Date: September 16, 2019 Anticipated date of discharge: 09/23/19 Subjective Possible seizure this am, undergoing neuro w/u. No other new complaints. Labs reveal increase in AST from 586 to 627 and ALT from 470 to 471. Lipase, INR, Bili, Alk phos, CPK, and creat all remain normal. HbsAG neg, HCV ab neg. A/P: H/o EtOH abuse Chronic APAP use, pt unable able to clearly quantify amount APAP used Abrupt rise in transaminases 2 days post admission Undetectable APAP level on admit, APAP*AST product < 1500 - Liver injury seems to be most likely to related to APAP use. Given rise in AST today, initiate NAC although benefit may not be clear. Check EBV, CMV IgM; KEYLA; and HCV PCR. If LFTs cont rise tomorrow, or if bili/INR rise, consider liver bx. Results & Data ([facility]) Vital Signs (Past 12 Hours) Vital Signs Temp Pulse Pulse Resp BP BP Pulse Ox 09/21/19 08:00 73 09/21/19 07:26 36.5 C 16 98 09/21/19 03:09 37.0 C 69 15 124/86 97 09/20/19 23:53 66 09/20/19 23:51 36.7 C 72 15 115/79 98
[2019-09-21] MEDS ORDERED: DEXTROSE 5% IV ONE ×3 (11:30→16:30)
[2019-09-21] MEDS ORDERED: ACETYLCYSTEINE IV ONE ×3 (11:30→16:30)
[2019-09-21] MEDS: PROMETHAZINE HCL 25 MG TAB PO PRN (17:23)
[2019-09-21] MEDS: ENOXAPARIN INJ 40 MG/0.4 ML SYR SQ SCH (17:24)
[2019-09-21] MEDS ORDERED: DiphenhydrAMINE HCL 50 MG/ML VIAL IV STA (17:48)
[2019-09-21] MEDS ORDERED: DiphenhydrAMINE HCL 50 MG/ML VIAL ONE (17:49)
[2019-09-21] MEDS ORDERED: SODIUM CHLORIDE 0.9% 1000ML 1,000 ML IV ONE (18:38)
[2019-09-21] MEDS ORDERED: EPINEPHRINE ADULT AUTO-INJECT 0.3 MG SYR IM PRN (18:40)
--- NOTE | 2019-09-21 19:13 | Communication Note ---
Date of Service: September 21, 2019 Contacted by nursing staff the patient was experiencing itching and flushing in response to NAC. NAC had been running for approximately 4 hours or so at this point that she developed symptoms. The patient reports starting to feel funny and this progressed into nausea which was treated with Phenergan. The Benadryl has improved her itching except some residual itching around the face area. Additional ranitidine 50 mg IV was given and after recheck the itching was resolved. Anaphylaxis was considered, especially after the patient reported possibly feeling her throat getting tight. She demonstrated no stridor and had no increased work of breathing. Blood pressure was in the 140s systolic and pulse was in the 60s to 70s consistently. She additionally had these "tremors" which appeared to be voluntary jerks that arose intermittently. I am not sure what to make of these, they are not seizures. She remains alert and oriented. 1 L normal saline bolus was given. After 20 minutes she was reassessed and vitals were still stable and the patient reported a complete resolution of pruritus. Feel no need for epinephrine at this time and will continue to monitor vitals closely over the next couple of hours. Updated GI on the status of the patient. DO Rob.
[2019-09-21] MEDS: GABAPENTIN 300 MG CAP PO SCH (21:08)
[2019-09-22] MEDS ORDERED: LORazepam 0.5 MG TAB PO STA (06:22)
[2019-09-22 06:33] LABS: Prothrombin Time 10.4 Seconds (9.0-12.0)
[2019-09-22 07:00] LABS: Albumin Level 2.7 gm/dl (3.4-5.0); BUN Creatinine Ratio 11.3 (10-20); Calcium 8.5 mg/dl (8.5-10.1); Creatinine Clr Calc Pharmacy 99.6 ml/min; Est GFR (African American) 110.8; Est GFR (Non-African American) 95.6; Potassium 3.4 mmol/L (3.5-5.1)
[2019-09-22 07:03] LABS: Albumin Globulin Ratio 0.8 (0.9-2); Bilirubin,Total 0.5 mg/dl (0.2-1); Globulin 3.3 gm/dl (2.5-4.0); Phosphorus 3.2 mg/dl (2.5-4.9)
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
[2019-09-22] MEDS: METOPROLOL SUCC 25MG EXT REL TAB PO SCH (07:48)
[2019-09-22] MEDS: MAGNESIUM OXIDE 400 MG TAB PO SCH ×2 (07:48→20:29)
[2019-09-22] MEDS: THIAMINE HCL 100 MG TAB PO SCH (07:48)
[2019-09-22] MEDS: DULOXETINE HCL 20 MG CAP PO SCH (07:48)
[2019-09-22] MEDS: PANTOprazole 40 MG TAB PO SCH (07:48)
[2019-09-22] MEDS: FOLIC ACID 1 MG TAB PO SCH (07:48)
--- NOTE | 2019-09-22 09:38 | Gastroenterology Progress Note ---
Date of Service September 22, 2019 Assessment & Plan (1) Transaminitis: This is a 44 y/o female with h/o acutely elevated LFTs in the setting of chronic APAP and ETOH use. Diff dx would include viral, DILI (possibly APAP), AIH, possibly ETOH vs other. Pattern of LFTs elevation (AST/ALT ratio) is not one that would be expected in ETOH use. She previously was complaining of some RLQ pain though today is not current complaining of abd pain. She did have NAC given this weekend but had a reaction to it (GI upset, tremors) and it was DC'd. - US ABD 09/10/19 ([facility] records) with mild hepatic steatosis, no GB stone, wall thickening; CBD 9 mm. CTAP with IV contrast 09/10/19 unremarkable. CMV, EBV, KEYLA pending. HCV ab neg, HbsAG neg. - Today AST is trending down; 627 -> 480; ALT 471 -> 482, normal ALP, T bili, INR, HGB and renal fxn. - Will make NPO and obtain MRCP today to evaluate for biliary sludge/stone - Await serology w/u; added ASMA, AMA, SPEP, ferritin, alpha-1 antitrypsin and Celiac panel - After MRCP pt may resume regular diet - Recommend strict ETOH and APAP cessation Admission and Anticipated Discharge Date Admission Date: September 16, 2019 Anticipated date of discharge: 09/24/19 Supervising Physician Co-Signing Physician Notes I have discussed the patient's management with the advanced practitioner. Please refer to the nurse practitioner's note for the documented findings and plan of care. Liver enzymes are now trending down. No biliary ductal dilation on current imaging. Unclear etiology. Recommend: MRCP. Repeat LFTs in 2 weeks as OP, if remains elevated then will arrange EUS + Liver Bx. Subjective Pt seen and examined today. She voices no complaints. Over the weekend was reconsulted by GI for worsening transaminases; EBV, CMV, KEYLA are pending. NAC was given but pt had a reaction to it (GI upset, tremors) and it was DC'd. This AM AST has trended down. She tolerated a regular breakfast Review of Systems Constitutional: no fever, no chills and no fatigue Eyes: no icterus Respiratory: no cough Cardiovascular: no chest pain and no dyspnea Gastrointestinal: no abdominal pain, no nausea, no vomiting and no dysphagia she had 3 loose stools this AM; non bloody Physical Exam Constitutional: WD/WN, vitals as above well developed; no acute distress Eyes: no icterus Respiratory: normal respiratory effort, lungs clear to auscultation Cardiovascular: Rate/Rhythm: regular rate and regular rhythm Gastrointestinal (Abdomen): Inspection/Auscultation: abdomen normal to inspection and normal bowel sounds; abdomen not distended Percussion/Palpation: abdomen soft; abdomen nontender and no guarding Musculoskeletal: no edema Skin: no rashes, warm and dry Psychiatric: A+Ox3, euthymic affect Results & Data ([facility]) Vital Signs (Past 12 Hours) Vital Signs Temp Pulse Pulse Resp BP Pulse Ox 09/22/19 07:34 78 09/22/19 06:40 36.8 C 81 16 113/77 98 09/22/19 03:02 36.6 C 58 L 16 127/86 98 09/21/19 23:40 55 L 09/21/19 23:19 36.7 C 57 L 16 137/90 98 Laboratory Results 09/22/19 09/22/19 09/22/19 Range/Units 08:20 08:20 05:54 PT (9.0-12.0) Seconds INR (0.9-1.1) Sodium (136-145) mmol/L Potassium (3.5-5.1) mmol/L Chloride (98-107) mmol/L Carbon Dioxide (21-32) mmol/L Anion Gap (3-11) BUN (7-18) mg/dl Creatinine (0.6-1.2) mg/dl Est Cr Clr Drug Dosing ml/min Est GFR ( Amer) Est GFR (Non-Af Amer) BUN/Creatinine Ratio (10-20) Glucose (70-99) mg/dl Calcium (8.5-10.1) mg/dl Phosphorus (2.5-4.9) mg/dl Magnesium (1.8-2.4) mg/dl Total Bilirubin (0.2-1) mg/dl AST (15-37) U/L ALT (12-78) U/L Alkaline Phosphatase (45-117) U/L Troponin I < 0.015 (0-0.045) ng/ml Total Protein (6.4-8.2) gm/dl Albumin (3.4-5.0) gm/dl Globulin (2.5-4.0) gm/dl Albumin/Globulin Ratio (0.9-2) Vitamin B12 717 (211-911) pg/ml KEYLA Screen Pending CMV IgM Ab Pending EBV Capsid Ag IgM Ab Pending 09/22/19 09/22/19 Range/Units 05:54 05:54 PT 10.4 (9.0-12.0) Seconds INR 1.0 (0.9-1.1) Sodium 142 (136-145) mmol/L Potassium 3.4 L (3.5-5.1) mmol/L Chloride 110 H (98-107) mmol/L Carbon Dioxide 26 (21-32) mmol/L Anion Gap 6.0 (3-11) BUN 8 D (7-18) mg/dl Creatinine 0.75 (0.6-1.2) mg/dl Est Cr Clr Drug Dosing 99.6 ml/min Est GFR ( Amer) 110.8 Est GFR (Non-Af Amer) 95.6 BUN/Creatinine Ratio 11.3 (10-20) Glucose 89 (70-99) mg/dl Calcium 8.5 (8.5-10.1) mg/dl Phosphorus 3.2 (2.5-4.9) mg/dl Magnesium 2.0 (1.8-2.4) mg/dl Total Bilirubin 0.5 (0.2-1) mg/dl AST 480 H (15-37) U/L ALT 482 H (12-78) U/L Alkaline Phosphatase 61 (45-117) U/L Troponin I (0-0.045) ng/ml Total Protein 6.0 L (6.4-8.2) gm/dl Albumin 2.7 L (3.4-5.0) gm/dl Globulin 3.3 (2.5-4.0) gm/dl Albumin/Globulin Ratio 0.8 L (0.9-2) Vitamin B12 (211-911) pg/ml KEYLA Screen CMV IgM Ab EBV Capsid Ag IgM Ab
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
[2019-09-22] MEDS ORDERED: clonazePAM 0.5 MG TAB PO STA (14:07)
--- NOTE | 2019-09-22 14:09 | Magnetic Resonance Report ---
MR MRCP CLINICAL HISTORY: elevated LFTs right upper quadrant abdominal pain COMPARISON STUDY: CT scan dated September 17, 2019 FINDINGS: A breath-hold MRCP was performed. MIP images were acquired. There is an 11 mm T2 bright focus within the central liver, likely resenting a cyst. The liver is mildly enlarged measuring 21 cm. The spleen is top normal in size measuring 12.3 cm. The gallbladder is contracted. There is no biliary or pancreatic ductal dilatation. No ductal filling defects are visualized. IMPRESSION: 1. Contracted gallbladder 2. No evidence of biliary or pancreatic ductal dilatation 3. No ductal filling defects identified 4. Mild hepatomegaly. Borderline splenic likely ACT 112: Negative or not required by law. Electronically signed by: Rene Coleman M.D. 09/22/2019 2:07 PM
[2019-09-22] MEDS: ENOXAPARIN INJ 40 MG/0.4 ML SYR SQ SCH (16:38)
[2019-09-22] MEDS: GABAPENTIN 300 MG CAP PO SCH (20:29)
[2019-09-22] MEDS ORDERED: clonazePAM 0.5 MG TAB PO PRN (22:08)
[2019-09-23] MEDS: PROMETHAZINE HCL 25 MG TAB PO PRN ×2 (00:58→22:25)
[2019-09-23 06:54] LABS: Hematocrit (blood only) 38.8 % (37-47); Hemoglobin 12.8 g/dL (12.0-16.0); Mean Corpuscular Hemoglobin 33.1 pg (25-34); Mean Corpuscular Volume 100.3 fL (80-100); Mean Platelet Volume 10.6 fL (7.4-10.4); Platelet Count 182 K/uL (130-400); RDW Coefficient of Variation 14.4 % (11.5-14.5); RDW Standard Deviation 52.4 fL (36.4-46.3); Red Blood Count 3.87 M/uL (4.2-5.4); White Blood Count 3.39 K/uL (4.8-10.8)
--- NOTE | 2019-09-23 07:02 | Gastroenterology Progress Note ---
Date of Service September 23, 2019 Assessment & Plan (1) Transaminitis: 44 y/o female with h/o acutely elevated LFTs in the setting of chronic APAP and ETOH use. Diff dx would include viral, DILI (possibly APAP), AIH, possibly ETOH vs other. - No new labs this AM - Trend LFTs, PT/INR and renal panel - MRCP is nondiagnostic - HCV ab neg, HbsAG neg. - Await serology w/u; added ASMA, AMA, SPEP, ferritin, alpha-1 antitrypsin, Celiac panel, CMV, EBV, KEYLA pending - Diet as tolerated - Recommend strict ETOH and APAP cessation - Defer NAC given reaction - OP EGD/EUS w/ LB Thank you for allowing us to participate in the care of this patient. Please call with any acute changes, questions or concerns. Please see addendum below with additional recommendation from my supervising physician. Admission and Anticipated Discharge Date Admission Date: September 16, 2019 Anticipated date of discharge: 09/24/19 Supervising Physician Co-Signing Physician Notes I performed a history and physical examination of the patient today, including specifically on physical exam - soft abdomen. I have discussed the patient's management with the advanced practitioner. Please refer to the nurse practitioner's note for the documented findings and plan of care. Liver enzymes trending down. Follow up as OP for possible EUS Subjective Pt was seen and evaluated, chart reviewed. Feeling better this AM Had some abd pain and nausea yesterday but this resolved No vomiting. Review of Systems Constitutional: no fever and no chills Respiratory: no cough and no dyspnea Cardiovascular: no chest pain Gastrointestinal: no abdominal pain Physical Exam Constitutional: WD/WN, vitals as above Neck: trachea midline Respiratory: normal respiratory effort Gastrointestinal (Abdomen): normal bowel sounds, soft, nontender, no hepatosplenomegaly Results & Data ([facility]) Vital Signs (Past 12 Hours) Vital Signs Temp Pulse Pulse Resp BP Pulse Ox 09/23/19 04:15 36.8 C 73 18 119/77 98 09/22/19 23:00 36.5 C 116 H 18 120/80 96 09/22/19 22:20 59 L 09/22/19 19:56 36.7 C 58 L 17 128/87 98 Laboratory Results 09/23/19 09/23/19 09/23/19 Range/Units 06:09 06:09 06:09 WBC 3.39 L (4.8-10.8) K/uL RBC 3.87 L (4.2-5.4) M/uL Hgb 12.8 (12.0-16.0) g/dL Hct 38.8 (37-47) % MCV 100.3 H (80-100) fL MCH 33.1 (25-34) pg MCHC 33.0 (32-36) g/dL RDW Std Deviation 52.4 H (36.4-46.3) fL RDW Coeff of Margi 14.4 (11.5-14.5) % Plt Count 182 (130-400) K/uL MPV 10.6 H (7.4-10.4) fL PT Pending INR Pending Sodium Pending (136-145) mmol/L Potassium Pending (3.5-5.1) mmol/L Chloride Pending (98-107) mmol/L Carbon Dioxide Pending (21-32) mmol/L Anion Gap Pending (3-11) BUN Pending (7-18) mg/dl Creatinine Pending (0.6-1.2) mg/dl Est Cr Clr Drug Dosing Pending ml/min Est GFR ( Amer) Pending Est GFR (Non-Af Amer) Pending BUN/Creatinine Ratio Pending (10-20) Glucose Pending (70-99) mg/dl Calcium Pending (8.5-10.1) mg/dl Phosphorus (2.5-4.9) mg/dl Magnesium (1.8-2.4) mg/dl Total Bilirubin Pending (0.2-1) mg/dl AST Pending (15-37) U/L ALT Pending (12-78) U/L Alkaline Phosphatase Pending (45-117) U/L Troponin I (0-0.045) ng/ml Total Protein Pending (6.4-8.2) gm/dl Albumin Pending (3.4-5.0) gm/dl Globulin Pending (2.5-4.0) gm/dl Albumin/Globulin Ratio Pending (0.9-2) Omobp-5-Iqjyqgelxgg Vitamin B12 (211-911) pg/ml IgA (70-400) mg/dl Anti-Mitochondrial Ab Anti-Smooth Muscle Ab Tiss Transglutamin IgA Gliadin (Deamidat) IgG Gliadin (Deamidat) IgA 09/22/19 09/22/19 09/22/19 Range/Units 10:01 10:01 08:20 WBC (4.8-10.8) K/uL RBC (4.2-5.4) M/uL Hgb (12.0-16.0) g/dL Hct (37-47) % MCV (80-100) fL MCH (25-34) pg MCHC (32-36) g/dL RDW Std Deviation (36.4-46.3) fL RDW Coeff of Margi (11.5-14.5) % Plt Count (130-400) K/uL MPV (7.4-10.4) fL PT INR Sodium (136-145) mmol/L Potassium (3.5-5.1) mmol/L Chloride (98-107) mmol/L Carbon Dioxide (21-32) mmol/L Anion Gap (3-11) BUN (7-18) mg/dl Creatinine (0.6-1.2) mg/dl Est Cr Clr Drug Dosing ml/min Est GFR ( Amer) Est GFR (Non-Af Amer) BUN/Creatinine Ratio (10-20) Glucose (70-99) mg/dl Calcium (8.5-10.1) mg/dl Phosphorus (2.5-4.9) mg/dl Magnesium (1.8-2.4) mg/dl Total Bilirubin (0.2-1) mg/dl AST (15-37) U/L ALT (12-78) U/L Alkaline Phosphatase (45-117) U/L Troponin I (0-0.045) ng/ml Total Protein (6.4-8.2) gm/dl Albumin (3.4-5.0) gm/dl Globulin (2.5-4.0) gm/dl Albumin/Globulin Ratio (0.9-2) Hbhyo-5-Jwnmdexpdes Pending Vitamin B12 717 (211-911) pg/ml IgA 289.0 (70-400) mg/dl Anti-Mitochondrial Ab Pending Anti-Smooth Muscle Ab Pending Tiss Transglutamin IgA Pending Gliadin (Deamidat) IgG Pending Gliadin (Deamidat) IgA Pending 09/22/19 09/22/19 Range/Units 08:20 05:54 WBC (4.8-10.8) K/uL RBC (4.2-5.4) M/uL Hgb (12.0-16.0) g/dL Hct (37-47) % MCV (80-100) fL MCH (25-34) pg MCHC (32-36) g/dL RDW Std Deviation (36.4-46.3) fL RDW Coeff of Margi (11.5-14.5) % Plt Count (130-400) K/uL MPV (7.4-10.4) fL PT INR Sodium 142 (136-145) mmol/L Potassium 3.4 L (3.5-5.1) mmol/L Chloride 110 H (98-107) mmol/L Carbon Dioxide 26 (21-32) mmol/L Anion Gap 6.0 (3-11) BUN 8 D (7-18) mg/dl Creatinine 0.75 (0.6-1.2) mg/dl Est Cr Clr Drug Dosing 99.6 ml/min Est GFR ( Amer) 110.8 Est GFR (Non-Af Amer) 95.6 BUN/Creatinine Ratio 11.3 (10-20) Glucose 89 (70-99) mg/dl Calcium 8.5 (8.5-10.1) mg/dl Phosphorus 3.2 (2.5-4.9) mg/dl Magnesium 2.0 (1.8-2.4) mg/dl Total Bilirubin 0.5 (0.2-1) mg/dl AST 480 H (15-37) U/L ALT 482 H (12-78) U/L Alkaline Phosphatase 61 (45-117) U/L Troponin I < 0.015 (0-0.045) ng/ml Total Protein 6.0 L (6.4-8.2) gm/dl Albumin 2.7 L (3.4-5.0) gm/dl Globulin 3.3 (2.5-4.0) gm/dl Albumin/Globulin Ratio 0.8 L (0.9-2) Ykpjf-2-Ucwffgrhbmz Vitamin B12 (211-911) pg/ml IgA (70-400) mg/dl Anti-Mitochondrial Ab Anti-Smooth Muscle Ab Tiss Transglutamin IgA Gliadin (Deamidat) IgG Gliadin (Deamidat) IgA
[2019-09-23 07:03] LABS: Prothrombin Time 10.4 Seconds (9.0-12.0)
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
[2019-09-23 07:30] LABS: Albumin Level 2.9 gm/dl (3.4-5.0); BUN Creatinine Ratio 12.1 (10-20); Calcium 8.5 mg/dl (8.5-10.1); Creatinine Clr Calc Pharmacy 92.2 ml/min; Est GFR (African American) 100.9; Est GFR (Non-African American) 87.1; Potassium 3.6 mmol/L (3.5-5.1)
[2019-09-23 07:33] LABS: Albumin Globulin Ratio 0.9 (0.9-2); Bilirubin,Total 0.5 mg/dl (0.2-1); Globulin 3.1 gm/dl (2.5-4.0)
[2019-09-23] MEDS ORDERED: SINCALIDE IV SCH (08:30)
[2019-09-23] MEDS ORDERED: SODIUM CHLORIDE 0.9% IV SCH (08:30)
[2019-09-23] MEDS: FOLIC ACID 1 MG TAB PO SCH (09:43)
[2019-09-23] MEDS: PANTOprazole 40 MG TAB PO SCH (09:43)
[2019-09-23] MEDS: MAGNESIUM OXIDE 400 MG TAB PO SCH ×2 (09:43→20:11)
[2019-09-23] MEDS: DULOXETINE HCL 20 MG CAP PO SCH (09:44)
[2019-09-23] MEDS: THIAMINE HCL 100 MG TAB PO SCH (09:44)
[2019-09-23] MEDS: METOPROLOL SUCC 25MG EXT REL TAB PO SCH (09:46)
--- NOTE | 2019-09-23 09:49 | Nuclear Medicine Report ---
NM hepatobiliary EF HISTORY: Pain. Nausea. RUQ abd pain, Elevated LFTs COMPARISON: MRCP same date TECHNIQUE: Immediately following the intravenous administration of 5.9 mCi Tc-99m Choletec, dynamic a nterior abdominal imaging pre/post 1.5 to mcg of Kinevac was performed. FINDINGS: Uniform hepatic tracer accumulation is shown. Prompt intrahepatic biliary excretion is seen. The gall bladder, common bile duct, and small bowel are all visualized by 60 minutes. This appearance represen ts the normal sequence of biliary excretion. The gallbladder ejection fraction following administration of Kinevac was uneventful. % (normal >35%) . IMPRESSION: 1. No evidence for cystic duct obstruction. 2. Gallbladder ejection fraction calculated to be 100 %. ACT 112: Negative or not required by law. The above report was generated using voice recognition software. It may contain grammatical, syntax or spelling errors. Electronically signed by: Wesley Hay M.D. 09/23/2019 9:47 AM
[2019-09-23 14:11] LABS: Hepatitis A Antibody IgM NON-REACTIVE (NON-REACTIVE); Hepatitis B Core Antibody IgM NON-REACTIVE (NON-REACTIVE)
[2019-09-23 14:54] LABS: Anti Nuclear Antibody Screen NEGATIVE (NEGATIVE); CMV IgM Antibody <30.00 AU/mL
[2019-09-23] MEDS: KETOROLAC 30 MG/ML VIAL IV PRN ×2 (14:54→22:25)
[2019-09-23] MEDS: ENOXAPARIN INJ 40 MG/0.4 ML SYR SQ SCH (16:54)
[2019-09-23] MEDS: GABAPENTIN 300 MG CAP PO SCH (20:11)
[2019-09-23 23:35] LABS: Alpha 1 Antitrypsin 112 mg/dL (83-199); Gliadin Deamidated IgA Ab 10 Units; Gliadin Deamidated IgG Ab 4 Units; Smooth Muscle Antibody NEGATIVE (NEGATIVE); Transglutaminase, Tissue IgA 1 U/mL
[2019-09-24] MEDS: KETOROLAC 30 MG/ML VIAL IV PRN ×3 (06:06→18:25)
[2019-09-24 06:34] LABS: Hematocrit (blood only) 39.2 % (37-47); Hemoglobin 12.7 g/dL (12.0-16.0); Mean Corpuscular Hgb Conc 32.4 g/dL (32-36); Mean Corpuscular Volume 101.8 fL (80-100); Platelet Count 221 K/uL (130-400); RDW Coefficient of Variation 14.3 % (11.5-14.5); RDW Standard Deviation 53.3 fL (36.4-46.3); Red Blood Count 3.85 M/uL (4.2-5.4); White Blood Count 3.76 K/uL (4.8-10.8)
[2019-09-24 07:09] LABS: Albumin Level 2.9 gm/dl (3.4-5.0); BUN Creatinine Ratio 14.4 (10-20); Calcium 8.6 mg/dl (8.5-10.1); Creatinine Clr Calc Pharmacy 89.3 ml/min; Est GFR (African American) 96.6; Est GFR (Non-African American) 83.3; Potassium 3.8 mmol/L (3.5-5.1)
[2019-09-24 07:12] LABS: Albumin Globulin Ratio 0.9 (0.9-2); Bilirubin,Total 0.5 mg/dl (0.2-1); Globulin 3.4 gm/dl (2.5-4.0); Total Protein 6.3 gm/dl (6.4-8.2)
[2019-09-24] MEDS: DULOXETINE HCL 20 MG CAP PO SCH (07:59)
[2019-09-24] MEDS: FOLIC ACID 1 MG TAB PO SCH (07:59)
[2019-09-24] MEDS: THIAMINE HCL 100 MG TAB PO SCH (07:59)
[2019-09-24] MEDS: PANTOprazole 40 MG TAB PO SCH (07:59)
[2019-09-24] MEDS: MAGNESIUM OXIDE 400 MG TAB PO SCH ×2 (07:59→21:26)
[2019-09-24] MEDS: METOPROLOL SUCC 25MG EXT REL TAB PO SCH (08:00)
[2019-09-24] MEDS: PROMETHAZINE HCL 25 MG TAB PO PRN ×2 (12:13→21:33)
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
[2019-09-24] MEDS: ENOXAPARIN INJ 40 MG/0.4 ML SYR SQ SCH (15:40)
[2019-09-24] MEDS: GABAPENTIN 300 MG CAP PO SCH (21:26)
[2019-09-25] MEDS: KETOROLAC 30 MG/ML VIAL IV PRN (02:17)
[2019-09-25] MEDS ORDERED: IBUPROFEN 800 MG TAB PO PRN (06:29)
[2019-09-25] MEDS: PANTOprazole 40 MG TAB PO SCH (09:24)
[2019-09-25] MEDS: FOLIC ACID 1 MG TAB PO SCH (09:24)
[2019-09-25] MEDS: MAGNESIUM OXIDE 400 MG TAB PO SCH ×2 (09:24→20:10)
[2019-09-25] MEDS: METOPROLOL SUCC 25MG EXT REL TAB PO SCH (09:24)
[2019-09-25] MEDS ORDERED: Nursing to Pharmacy Communication ONE (09:47)
[2019-09-25] MEDS ORDERED: OXYCODONE HCL IR 5 MG TAB (IMMEDIATE RELEASE) PO STA (09:55)
[2019-09-25] MEDS: DULOXETINE HCL 20 MG CAP PO SCH (09:59)
[2019-09-25] MEDS: THIAMINE HCL 100 MG TAB PO SCH (09:59)
[2019-09-25] MEDS: ENOXAPARIN INJ 40 MG/0.4 ML SYR SQ SCH (17:23)
[2019-09-25] MEDS: PROMETHAZINE HCL 25 MG TAB PO PRN (17:26)
[2019-09-25] MEDS ORDERED: TAPENTADOL HCL 50 MG TAB PO ONE (17:40)
[2019-09-25] MEDS: TAPENTADOL HCL 50 MG TAB PO PRN (20:09)
[2019-09-25] MEDS: GABAPENTIN 300 MG CAP PO SCH (20:10)
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
[2019-09-26] MEDS ORDERED: OXYCODONE HCL IR 5 MG TAB (IMMEDIATE RELEASE) PO STA (03:27)
[2019-09-26 07:08] LABS: Hematocrit (blood only) 39.5 % (37-47); Hemoglobin 12.7 g/dL (12.0-16.0); Mean Corpuscular Hemoglobin 33.1 pg (25-34); Mean Corpuscular Hgb Conc 32.2 g/dL (32-36); Mean Corpuscular Volume 102.9 fL (80-100); Mean Platelet Volume 10.3 fL (7.4-10.4); Platelet Count 257 K/uL (130-400); RDW Coefficient of Variation 14.5 % (11.5-14.5); RDW Standard Deviation 54.4 fL (36.4-46.3); Red Blood Count 3.84 M/uL (4.2-5.4); White Blood Count 5.08 K/uL (4.8-10.8)
[2019-09-26 07:46] LABS: Albumin Level 2.8 gm/dl (3.4-5.0); BUN Creatinine Ratio 12.1 (10-20); Calcium 8.6 mg/dl (8.5-10.1); Creatinine Clr Calc Pharmacy 68.2 ml/min; Est GFR (African American) 69.7; Est GFR (Non-African American) 60.2; Magnesium 2.2 mg/dl (1.8-2.4); Potassium 3.9 mmol/L (3.5-5.1)
[2019-09-26 07:49] LABS: Albumin Globulin Ratio 0.9 (0.9-2); Bilirubin,Total 0.3 mg/dl (0.2-1); Globulin 3.2 gm/dl (2.5-4.0)
[2019-09-26] MEDS: PROMETHAZINE HCL 25 MG TAB PO PRN (08:03)
[2019-09-26] MEDS: TAPENTADOL HCL 50 MG TAB PO PRN (08:03)
[2019-09-26] MEDS: DULOXETINE HCL 20 MG CAP PO SCH (08:03)
[2019-09-26] MEDS: THIAMINE HCL 100 MG TAB PO SCH (08:03)
[2019-09-26] MEDS: PANTOprazole 40 MG TAB PO SCH (08:03)
[2019-09-26] MEDS: MAGNESIUM OXIDE 400 MG TAB PO SCH (08:04)
[2019-09-26] MEDS: FOLIC ACID 1 MG TAB PO SCH (08:04)
[2019-09-26] MEDS: METOPROLOL SUCC 25MG EXT REL TAB PO SCH (08:04)
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
== END 2019-09-26 13:57 | disposition home or self-care (01) | DRG 897 ==
LOC: ED 11:31 → 1E 14:09 → SUATTDRO 14:09 → 1E 15:30 → 2E 09-17 11:22 → 4W 09-17 15:36 → 2N 09-18 14:26